=== PATIENT | female | born 1995 | race Caucasian/White ===

== ENCOUNTER 2022-03-08 20:44 | Emergency (ER) | payer OTHER, SELFPAY ==
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
[2022-03-08 20:57] VITALS: BP 138/89; PULSE 90; RESP 16; TEMP 36.6; O2SAT 98
--- NOTE | 2022-03-08 20:58 | ECG_ITS ---
Measurements Intervals [place] Rate: 77 P: 66 AL: 163 QRS: 75 QRSD: 79 T: 64 QT: 401 QTc: 456 Interpretive Statements SINUS RHYTHM NO PREVIOUS ECG AVAILABLE FOR COMPARISON Electronically Signed On 03-09-2022 15:25:08 DESIGNER WRITER by Elke Escobar M.D.
[2022-03-08 21:11] LABS: Basophils Percent Auto 0.4 % (0.2-1.2); Eosinophils Absolute Auto 0.3 K/mm3 (0-0.3); Eosinophils Percent Auto 2.9 % (0-4.4); Hematocrit 42.8 % (37.0-47.0); Immature Granulocyte Absolute 0.02 K/mm3 (0.00-0.031); Immature Granulocyte Percent A 0.2 % (0-0.5); Lymphocytes Absolute Auto 2.63 K/mm3 (0.9-3.2); Lymphocytes Percent Auto 27.4 % (18.3-44.2); Mean Corpuscular HGB Conc 32.7 g/dl (32-36); Mean Corpuscular Hemoglobin 29.6 pg (26-34); Mean Corpuscular Volume 90.5 fl (80-100); Mean Platelet Volume 9.3 fl (7.4-10.4); Monocytes Absolute Auto 0.6 K/mm3 (0.1-0.6); Monocytes Percent Auto 6.7 % (2.6-8.5); Neutrophils Percent Auto 62.4 % (45.5-73.1); Platelet Count Result 305 k/mm3 (150-375); Red Blood Count 4.73 M/mm3 (4.2-5.4); Red Cell Distribution Width 15.1 % (11.5-14.5); White Blood Count 9.6 K/mm3 (4.5-10.0)
[2022-03-08 21:21] LABS: Alanine Aminotransferase 107 U/L (6-35); Albumin Level 4.5 g/dL (3.5-5.1); Alkaline Phosphatase 97 U/L (38-126); Anion Gap 8 mmol/L (8-16); Aspartate Amino Transferase 75 U/L (14-36); Bilirubin,Total 0.4 mg/dL (0.2-1.3); Blood Urea Nitrogen 19 mg/dL (7-17); Calcium 8.7 mg/dL (8.4-10.2); Carbon Dioxide 22 mmol/L (22-30); Chloride 106 mmol/L (98-107); Estimated CRCL calculation 11 ml/min; Estimated Glomerular Filt Rate > 60; Glucose 100 mg/dL (65-110); Potassium 3.9 mmol/L (3.4-5.0); Sodium 136 mmol/L (137-145)
[2022-03-08 21:34] VITALS: BP 145/94; PULSE 89; RESP 19; O2SAT 98
[2022-03-08 22:16] VITALS: BP 126/81; PULSE 80; RESP 16; O2SAT 98
[2022-03-08 22:16] LABS: Lipase 38 U/L (23-300)
[2022-03-08 22:35] LABS: Beta HCG Quantitative < 2.39 mIU/ML
[2022-03-08 22:40] LABS: Appearance Urine Clear (Clear); Bilirubin Urine Negative (Negative); Blood Urine Negative (Negative); Color Urine Yellow (Yellow); Glucose Urine UA Negative (Negative); Ketones Urine Negative (Negative); Leukocyte Esterase Ur Negative LEU/UL (Negative); Nitrate Urine Negative (Negative); Protein Urine Negative (Negative); Specific Grav Ur 1.025 (1.001-1.035); Urobilinogen Urine 0.2 mg/dL (<2.0); pH Urine 6.5 (5.0-9.0)
[2022-03-08 22:42] LABS: Mucus Urine Rare /lpf; Squamous Epithelial Cell Urine Few /hpf (Few); WBC Urine 0-3 /hpf
[2022-03-08] MEDS: SODIUM CHLORIDE 0.9% IV 1,000 ML 999 ML IV CONT (22:43)
[2022-03-08 22:56] LABS: Add Urine Microscopic? NO
[2022-03-08 23:32] VITALS: BP 131/81; PULSE 85; RESP 13; O2SAT 100
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
== END 2022-03-09 00:45 | disposition home or self-care (01) ==
PROVIDERS: Emergency Provider Emergency Medicine
DX: R10.84 Generalized abdominal pain (principal); R16.0 Hepatomegaly, not elsewhere classified; K20.90 Esophagitis, unspecified without bleeding; K29.70 Gastritis, unspecified, without bleeding
CPT/HCPCS: 36415; 74177; 80053; 81003; 83690; 84702; 85025; 93005; 96360; 96361; 99284; J7030; Q9967

== ENCOUNTER 2022-04-04 09:26 | Emergency (ER) | payer OTHER, SELFPAY ==
[2022-04-04 09:40] VITALS: BP 101/64; PULSE 97; RESP 16; TEMP 36.5; O2SAT 97
--- NOTE | 2022-04-04 10:11 | ED_ITS ---
HPI - Dental/Oral General Chief complaint: Dental/Oral Stated complaint: R BOTTOM TOOTH PAIN Time Seen by Provider: 04/04/22 10:11 History of Present Illness HPI Narrative: 26-year-old female presents emergency room for evaluation of chronic dental pain. He was seen at an outside emergency room 2 weeks ago and just completed a course of clindamycin yesterday. States that she has had a dental appointment in 3 weeks. Is been taking Tylenol and ibuprofen with no relief of symptoms. Patient states she is here requesting pain medicines only. Related Data Allergies Allergy/AdvReac Type Severity Reaction Status Date / Time amoxicillin Allergy Unknown Dyspnea / Verified 11/29/18 22:10 SOB Review of Systems Review of Systems: CONSTITUTIONAL: Denies fever, chills, or sweats. EYES: Denies visual changes, redness, or discharge. ENT: Denies rhinorrhea, congestion, sore throat, or otalgia. CARDIOVASCULAR: Denies chest pain, palpitations, or edema. RESPIRATORY: Denies cough or dyspnea. GASTROINTESTINAL: Denies abdominal pain, nausea, vomiting, or diarrhea. GENITOURINARY: Denies dysuria or hematuria. SKIN: Denies rash or itching. MUSCULOSKELETAL: Denies back pain, joint pain, or myalgia. NEUROLOGIC: Denies headache, numbness, dizziness, or weakness. PSYCHIATRIC: Denies anxiety or depression. Exam Narrative: GENERAL: Well-appearing, well-nourished, no physical limitations, and in no acute distress. HEAD: Normocephalic, atraumatic. EYES: Conjunctivae normal, PERRLA and EOMI. ENT: Widespread periodontal disease, widespread caries. Significantly decayed right lower molar, with no surrounding erythema or abscess noted. Tenderness to palpation NECK: Supple. No adenopathy or masses. CHEST: Clear to auscultation. No respiratory distress. No wheezes rales or rhonchi. No tenderness. HEART: Regular rate and rhythm. No murmur heard. Normal peripheral pulses. EXTREMITIES: Normal range of motion. No edema. No clubbing or cyanosis SKIN: Warm, dry, no rash. No noted wounds NEURO: No focal deficits. Alert and oriented x3. MAEW. CN's II-XI intact bilaterally, normal gait PSYCH: Cooperative. Normal mood and affect. Course Vital Signs Vital signs: Vital Signs Temperature 36.5 C 04/04/22 09:40 Pulse Rate 97 04/04/22 09:40 Respiratory Rate 16 04/04/22 09:40 Blood Pressure 101/64 04/04/22 09:40 Pulse Oximetry 97 04/04/22 09:40 Oxygen Delivery Room Air 04/04/22 09:40 Temperature 36.5 C 04/04/22 09:40 Pulse Rate 97 04/04/22 09:40 Respiratory Rate 16 04/04/22 09:40 Blood Pressure 101/64 04/04/22 09:40 Pulse Oximetry 97 04/04/22 09:40 Oxygen Delivery Room Air 04/04/22 09:40 Discharge Plan Discharge Clinical Impression: Dental caries, Toothache Patient Disposition: Home, Self-Care Condition: Stable Instructions: Antibiotic Form, Toothache (ED) Additional Instructions: Keep your dental appointment. May take Tylenol and ibuprofen as needed. Prescriptions: New tramadol 50 mg tablet 50 mg PO Q6H PRN (Reason: pain) Qty: 8 0RF Follow-up/Referrals: PHYSICIAN,TITLE I COORDINATOR [Non-Staff] - Stand Alone Forms: Work/School Release IP Time of Disposition: 10:15
== END 2022-04-04 10:27 | disposition home or self-care (01) ==
PROVIDERS: Emergency Provider Nurse Practitioner Family
DX: K02.9 Dental caries, unspecified (principal)
CPT/HCPCS: 99283

== ENCOUNTER 2022-04-10 08:16 | Emergency (ER) | payer OTHER, SELFPAY ==
[2022-04-10 08:54] VITALS: BP 128/74; PULSE 120; RESP 20; TEMP 36.4; O2SAT 99
--- NOTE | 2022-04-10 09:13 | ED.RECABL ---
HPI - Recheck/Abnormal Lab/Rx General Chief Complaint: Recheck/Abnormal Lab/Rx Stated Complaint: want checked for hepatitis C Time Seen by Provider: 04/10/22 08:52 History of Present Illness HPI narrative: Patient is a 26-year-old female here for evaluation after being told she tested positive for hepatitis C. Patient received a letter in the mail 5 days ago from a company which she donated blood with notifying her that she tested positive. Patient denies any symptoms, specifically denies abdominal pain, jaundice, nausea or vomiting. She is a drug user. She would like to be retested today and referred to somebody who can start treatment if she is positive. Related Data Allergies Allergy/AdvReac Type Severity Reaction Status Date / Time amoxicillin Allergy Unknown Dyspnea / Verified 11/29/18 22:10 SOB Review of Systems Review of Systems: Gen.: Denies fevers or chills Eyes: Denies eye pain or visual change ENT: Denies congestion Respiratory: Denies shortness of breath or cough CV: Denies chest pain or palpitations GI: Denies abdominal pain nausea, emesis or diarrhea denies burning, urgency, frequency or hematuria Musculoskeletal: Denies back pain or muscle pain Neuro: Denies numbness, tingling, weakness or focal weakness Skin: Denies rash Except as documented, all other systems reviewed and negative Exam Narrative: Gen: Alert, oriented, no acute distress. Eyes: EOMI, no icterus Pulm: Respirations even and unlabored, symmetric thorax expansion, no audible stridor or visible cyanosis CV: Regular rate per telemetry GI: No distension, no voluntary/involuntary guarding Neuro: AOx4, moves all extremities without apparent difficulty or weakness, follows commands Skin: No jaundice, no visible bruising, rashes, lesions or wounds on exposed skin Psych: Normal mood/affect, insight/judgement good, adequate fund of knowledge, recent/remote memory intact Course Vital Signs Vital signs: Vital Signs Temperature 97.6 F 04/10/22 08:54 Pulse Rate 120 H 04/10/22 08:54 Respiratory Rate 20 04/10/22 08:54 Blood Pressure 128/74 04/10/22 08:54 Pulse Oximetry 99 04/10/22 08:54 Oxygen Delivery Room Air 04/10/22 08:54 Temperature 97.6 F 04/10/22 08:54 Pulse Rate 120 H 04/10/22 08:54 Respiratory Rate 20 04/10/22 08:54 Blood Pressure 128/74 04/10/22 08:54 Pulse Oximetry 99 04/10/22 08:54 Oxygen Delivery Room Air 04/10/22 08:54 MDM - Recheck/Abnormal Lab/Rx MDM Narrative Medical decision making narrative: 26-year-old female here for evaluation after being told she has hepatitis C. She is nontoxic-appearing; heart rate is 120, likely due to anxiety, not complaining of chest pain or palpitations. Her hepatitis C antibody is positive today. Liver enzymes slightly elevated at 39 and 46; appears chronic. She will be referred to GI for further evaluation and management. Lab Data 04/10/22 09:36 04/10/22 09:36 Labs: Lab Results 04/10/22 04/10/22 04/10/22 Range/Units 09:36 09:36 09:36 WBC 8.2 (4.5-10.0) K/mm3 RBC 4.63 (4.2-5.4) M/mm3 Hgb 13.5 (12.0-15.0) g/dL Hct 41.8 (37.0-47.0) % MCV 90.3 (80-100) fl MCH 29.2 (26-34) pg MCHC 32.3 (32-36) g/dl RDW 14.3 (11.5-14.5) % Plt Count 322 (150-375) k/mm3 MPV 9.3 (7.4-10.4) fl Immature Gran % (Auto) 0.2 (0-0.5) % Neut % (Auto) 65.5 (45.5-73.1) % Lymph % (Auto) 21.3 (18.3-44.2) % [place] % (Auto) 6.0 (2.6-8.5) % Eos % (Auto) 6.5 H (0-4.4) % Baso % (Auto) 0.5 (0.2-1.2) % Lymph # (Auto) 1.75 (0.9-3.2) K/mm3 [place] # (Auto) 0.5 (0.1-0.6) K/mm3 Eos # (Auto) 0.5 H (0-0.3) K/mm3 Baso # (Auto) 0.0 (0.0-0.1) K/mm3 Abs Immat Gran (auto) 0.02 (0.00-0.031) K/mm3 Absolute Neuts (auto) 5.4 (1.3-6.7) K/mm3 Absolute Nucleated RBC 0.0 (0.0-0.012) K/mm3 Nucleated RBC % 0.0 (0.0-0.2) % Sodium 140 (137-145) mmol/L Pot
[2022-04-10 10:03] LABS: Basophils Percent Auto 0.5 % (0.2-1.2); Eosinophils Absolute Auto 0.5 K/mm3 (0-0.3); Eosinophils Percent Auto 6.5 % (0-4.4); Hematocrit 41.8 % (37.0-47.0); Hemoglobin 13.5 g/dL (12.0-15.0); Immature Granulocyte Absolute 0.02 K/mm3 (0.00-0.031); Immature Granulocyte Percent A 0.2 % (0-0.5); Lymphocytes Absolute Auto 1.75 K/mm3 (0.9-3.2); Lymphocytes Percent Auto 21.3 % (18.3-44.2); Mean Corpuscular HGB Conc 32.3 g/dl (32-36); Mean Corpuscular Hemoglobin 29.2 pg (26-34); Mean Corpuscular Volume 90.3 fl (80-100); Mean Platelet Volume 9.3 fl (7.4-10.4); Monocytes Absolute Auto 0.5 K/mm3 (0.1-0.6); Neutrophils Absolute Auto 5.4 K/mm3 (1.3-6.7); Neutrophils Percent Auto 65.5 % (45.5-73.1); Platelet Count Result 322 k/mm3 (150-375); Red Blood Count 4.63 M/mm3 (4.2-5.4); Red Cell Distribution Width 14.3 % (11.5-14.5); White Blood Count 8.2 K/mm3 (4.5-10.0)
[2022-04-10 10:52] LABS: Alanine Aminotransferase 46 U/L (6-35); Albumin Level 4.2 g/dL (3.5-5.1); Alkaline Phosphatase 85 U/L (38-126); Anion Gap 4 mmol/L (8-16); Aspartate Amino Transferase 39 U/L (14-36); Bilirubin,Total 0.3 mg/dL (0.2-1.3); Blood Urea Nitrogen 17 mg/dL (7-17); Calcium 8.8 mg/dL (8.4-10.2); Carbon Dioxide 29 mmol/L (22-30); Chloride 107 mmol/L (98-107); Estimated CRCL calculation 86 ml/min; Estimated Glomerular Filt Rate > 60; Glucose 79 mg/dL (65-110); Potassium 4.3 mmol/L (3.4-5.0); Sodium 140 mmol/L (137-145)
[2022-04-10 11:10] LABS: Hepatitis B Surface Antigen Negative (Negative)
[2022-04-10 11:16] LABS: HAV RESULT Negative (Negative); Hepatitis B Core IgM Result Negative (Negative)
[2022-04-10 11:28] LABS: Hepatitis C Virus Antibody Reactive (Negative)
== END 2022-04-10 11:47 | disposition home or self-care (01) ==
PROVIDERS: Emergency Provider Physician Assistant
DX: R79.89 Other specified abnormal findings of blood chemistry (principal)
CPT/HCPCS: 36415; 80053; 80074; 85025; 87522; 99283

== ENCOUNTER 2022-04-29 11:26 | Outpatient (CLI) | payer OTHER, SELFPAY ==
[2022-04-29 12:11] LABS: INR 0.9
[2022-05-01 15:33] LABS: Hepatitis C Viral RNA PCR 941000 IU/mL
[2022-05-03 20:44] LABS: HCV Genotype, LiPA 1a
== END 2022-04-29 11:27 | disposition home or self-care (01) ==
LOC: ANHLAB 11:27
PROVIDERS: Visit Provider Internal Medicine Gastroenterology
DX: B19.20 Unspecified viral hepatitis C without hepatic coma (principal); R74.8 Abnormal levels of other serum enzymes
CPT/HCPCS: 36415; 81596; 85610; 87522

== ENCOUNTER 2022-05-12 10:14 | Outpatient (CLI) | payer OTHER, SELFPAY ==
[2022-05-19 14:53] LABS: ALT 39 U/L (6-29); Alpha-2-Macroglobulin 245 mg/dL (106-279); Apolipoprotein A1 227 mg/dL (101-198); Fibrosis Score 0.12; Fibrosis Stage F0; GGT 139 U/L (3-40); Haptoglobin 108 mg/dL (43-212); Necroinflammat Act Grade A0; Total Bilirubin 0.5 mg/dL (0.2-1.2)
== END 2022-05-12 10:15 | disposition home or self-care (01) ==
LOC: ANHLAB 10:15
PROVIDERS: Visit Provider Nurse Practitioner
DX: B19.20 Unspecified viral hepatitis C without hepatic coma (principal); R74.8 Abnormal levels of other serum enzymes
CPT/HCPCS: 36415; 81596

== ENCOUNTER 2022-05-19 11:18 | Outpatient (CLI) | payer OTHER, SELFPAY ==
[2022-05-25 23:17] LABS: ALT 47 U/L (6-29); Alpha-2-Macroglobulin 255 mg/dL (106-279); Apolipoprotein A1 261 mg/dL (101-198); Fibrosis Score 0.08; Fibrosis Stage F0; GGT 183 U/L (3-40); Haptoglobin 92 mg/dL (43-212); Necroinflammat Act Grade A0-A1; Total Bilirubin 0.3 mg/dL (0.2-1.2)
== END 2022-05-19 11:19 | disposition home or self-care (01) ==
PROVIDERS: Visit Provider Nurse Practitioner
DX: B19.20 Unspecified viral hepatitis C without hepatic coma (principal); R74.8 Abnormal levels of other serum enzymes
CPT/HCPCS: 36415; 81596

== ENCOUNTER 2022-05-28 05:04 | Emergency (ER) | payer OTHER, SELFPAY ==
[2022-05-28 05:05] VITALS: BP 163/114; PULSE 87; RESP 14; TEMP 36.4; O2SAT 98
--- NOTE | 2022-05-28 05:44 | ED.DENTAL ---
HPI - Dental/Oral General Chief complaint: Dental/Oral Stated complaint: dental pain Time Seen by Provider: 05/28/22 05:39 Source: RN notes reviewed History of Present Illness HPI Narrative: Patient presents emergency department from home for dental pain. Patient states has been having pain in her right lower jaw for several weeks that worsened this evening. States she had a long history of issues with her molar tooth in this region and supposed be seeing a dentist in July she states she had been on antibiotics at the beginning of the year for that tooth as well she states she has not take anything at home for the pain she denies any fevers or chills states that the pain does radiate into her ear but she denies inability to swallow or shortness of breath patient states she is allergic to amoxicillin Related Data Home Medications Medication Instructions Recorded Confirmed hydroxyzine HCl 25 mg tablet 25 mg PO TID PRN 04/29/22 levetiracetam 500 mg tablet 500 mg PO Q12H 04/29/22 (Keppra) naltrexone microspheres 380 mg 380 mg IM MONTHLY 04/29/22 intramuscular suspension,extended release (Vivitrol) quetiapine 300 mg tablet (Seroquel) 300 mg PO QHS 04/29/22 quetiapine 50 mg tablet (Seroquel) 50 mg PO TID 04/29/22 venlafaxine 75 mg tablet 75 mg PO TID 04/29/22 Allergies Allergy/AdvReac Type Severity Reaction Status Date / Time amoxicillin Allergy Unknown Dyspnea / Verified 04/29/22 10:56 SOB Review of Systems Review of Systems: Gen.: Denies fevers or chills HEENT : See HPI Neuro: D headache Skin: Denies rash Endo: Denies DM PMFSH Past Medical History Medical History Elevated liver enzymes Hepatitis C Methadone use Social History Social History Smoking packs per day: 1 Smoking cigarettes per day: 20.0 Smoking status: Former smoker Alcohol intake: never Substance use: former Exam Narrative: APPEARANCE: No acute distress, nontoxic, resting in bed HEENT: Normocephalic, atraumatic, TMs clear bilaterally, nares patent, oral mucosa moist, airway patent, tooth #32 is carious down to the gum and tender to palpation there is mild erythema of the gum with no fluctuance RESPIRATORY: No respiratory distress MUSCULOSKELETAl: Moves all extremities. NEURO: Awake and alert. Following commands, speech normal, no focal deficits SKIN:: Warm, dry. Normal Color PSYCHIATRIC: Normal affect/mood Course Course Emergency Course: Discussed with patient results of workup and diagnosis. Discussed need for follow-up with primary care, proper use of medication, and reasons to return to the emergency department. Patient understands and agrees to current treatment plan Vital Signs Vital signs: Vital Signs Temperature 97.6 F 05/28/22 05:05 Pulse Rate 87 05/28/22 05:05 Respiratory Rate 14 05/28/22 05:05 Blood Pressure 163/114 H 05/28/22 05:05 Pulse Oximetry 98 05/28/22 05:05 Temperature 97.6 F 05/28/22 05:05 Pulse Rate 87 05/28/22 05:05 Respiratory Rate 14 05/28/22 05:05 Blood Pressure 163/114 H 05/28/22 05:05 Pulse Oximetry 98 05/28/22 05:05 MDM - Dental/Oral MDM Narrative Medical decision making narrative: Patient presents for dental pain tooth #32 is carious down to the gumline tender there is mild erythema there is no fluctuance patient is allergic to amoxicillin so will place on clindamycin we will give pain medicine refer to dental clinic for further evaluation Differential Diagnosis Differential diagnosis: Likely toothache, dental abscess, fracture of tooth and aphthous ulcer Discharge Plan Discharge Clinical Impression: Dental abscess, Dental caries Patient Disposition: Home, Self-Care Condition: Stable Instructions: Antibiotic Form, Dental Abscess (ED) Additional Instructions: Return for increasing pain fever or any other symptoms of
[2022-05-28] MEDS: CLINDAMYCIN HCL 150 MG CAP 450 MG PO (06:00)
[2022-05-28] MEDS: HYDROcodone/acetaminophen (*CRX) 5-325 MG TABLET 1 TAB PO (06:00)
[2022-05-28 06:14] VITALS: BP 118/79; PULSE 84; RESP 18; TEMP 36.6; O2SAT 99
== END 2022-05-28 06:14 | disposition home or self-care (01) ==
PROVIDERS: Emergency Provider Emergency Medicine; PCP Emergency Medicine
DX: K04.7 Periapical abscess without sinus (principal); K02.9 Dental caries, unspecified; B19.20 Unspecified viral hepatitis C without hepatic coma; Z87.891 Personal history of nicotine dependence
CPT/HCPCS: 99283; A9270

== ENCOUNTER 2023-03-16 08:19 | Emergency (ER) | payer OTHER, SELFPAY ==
[2023-03-16 08:20] VITALS: BP 139/69; PULSE 80; RESP 16; TEMP 36.4; O2SAT 100
--- NOTE | 2023-03-16 09:16 | ED.FEMALEGU ---
HPI - Female Genitourinary General Chief complaint: Recheck/Abnormal Lab/Rx Stated complaint: GENITAL LESIONS Time Seen by Provider: 03/16/23 09:06 Source: patient Mode of arrival: ambulatory Limitations: no limitations History of Present Illness HPI Narrative: This is a 27-year-old female that presents to the emergency department for genital lesions. Reports she was seen at [facility] a week ago and diagnosed with herpes. She took a week of Valtrex and is still having symptoms. She would like another prescription. She also would like to be restarted on her hepatitis medication. Reports some dysuria. Denies hematuria. Related Data Home Medications Medication Instructions Recorded Confirmed hydroxyzine HCl 25 mg tablet 25 mg PO TID PRN 04/29/22 levetiracetam 500 mg tablet 500 mg PO Q12H 04/29/22 (Keppra) naltrexone microspheres 380 mg 380 mg IM MONTHLY 04/29/22 intramuscular suspension,extended release (Vivitrol) quetiapine 300 mg tablet (Seroquel) 300 mg PO QHS 04/29/22 quetiapine 50 mg tablet (Seroquel) 50 mg PO TID 04/29/22 venlafaxine 75 mg tablet 75 mg PO TID 04/29/22 Allergies Allergy/AdvReac Type Severity Reaction Status Date / Time amoxicillin Allergy Unknown Dyspnea / Verified 04/29/22 10:56 SOB Review of Systems Review of Systems: CONSTITUTIONAL: Denies fever GENITOURINARY: Reports dysuria. Denies hematuria. SKIN: Reports rash All systems reviewed & are unremarkable except as noted in HPI and below PMFSH Past Medical History Medical History Elevated liver enzymes Hepatitis C Methadone use Social History Social History Smoking packs per day: 1 Smoking cigarettes per day: 20.0 Smoking status: Former smoker Alcohol intake: never Substance use: former Exam Narrative: GENERAL: Well-appearing, well-nourished, and in no acute distress. HEAD: Normocephalic, atraumatic. EYES: EOMI. CHEST: No respiratory distress. HEART: Regular rate EXTREMITIES: Normal range of motion. No edema. SKIN: Warm, dry, no rash. NEURO: No focal deficits. Alert and oriented x3. PSYCH: Normal mood and affect FEMALE GENITAL: Multiple ulcerating lesions and papillated papules to the labia bilaterally. Normal appearing cervix, no abnormal drainage noted Course Vital Signs Vital signs: Vital Signs Temperature 97.6 F 03/16/23 08:20 Pulse Rate 80 03/16/23 08:20 Respiratory Rate 16 03/16/23 08:20 Blood Pressure 139/69 03/16/23 08:20 Pulse Oximetry 100 03/16/23 08:20 Oxygen Delivery Room Air 03/16/23 08:20 Temperature 97.6 F 03/16/23 08:20 Pulse Rate 80 03/16/23 08:20 Respiratory Rate 16 03/16/23 08:20 Blood Pressure 139/69 03/16/23 08:20 Pulse Oximetry 100 03/16/23 08:20 Oxygen Delivery Room Air 03/16/23 08:20 MDM - Female Genitourinary MDM Narrative Medical decision making narrative: Patient presented to the emergency department for evaluation of genital lesions. She was seen for this at [facility] and started on Valtrex. Wanted a refill of her prescription. Urine, chlamydia, gonorrhea, Trichomonas and general general culture were sent. She was also wanting treated for hepatitis-C. I told her she needed to follow-up with her GI doctor for this. Patient eloped after being seen and before finishing her workup and treatment Differential Diagnosis Differential diagnosis: Likely urinary tract infection, bacterial vaginosis, trichomoniasis, cervicitis, vaginitis and other ( chlamydia, gonorrhea, syphilis, herpes) Lab Data Labs: Lab Results 03/16/23 Range/Units 09:59 RPR Pending C. trachomatis (PCR) Pending HIV 1&2 Ab/P24 Ag 4thGn Pending N. gonorrhoeae (PCR) Pending T. vaginalis (PCR) Pending Critical Care Time Critical Care Time Critical Care Time: No Discharge Plan Discharge Clinical Impr
[2023-03-16] MEDS: IBUPROFEN 600 MG TABLET PO (10:22)
--- NOTE | 2023-03-16 10:38 | PC.NURSE ---
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
[2023-03-16 11:03] LABS: HIV 1/2 Ab P24 Ag Result Negative (Negative)
[2023-03-16 11:19] LABS: Trichomonas Vag PCR NOT DETECTED (NOT DETECTE)
[2023-03-16 11:43] LABS: Chlamydia trachomatis NOT DETECTED (NOT DETECTE); Neisseria gonorrhoeae PCR NOT DETECTED (NOT DETECTE)
[2023-03-16 14:40] LABS: Rapid Plasma Reagin Reactive (NonReactive)
[2023-03-18 17:03] LABS: Treponema pallidum Ab FTA ABS Reactive (Nonreactive)
== END 2023-03-16 10:42 | disposition left against medical advice (07) ==
LOC: ANHED 09:25
PROVIDERS: Emergency Provider Physician Assistant; PCP Internal Medicine
DX: N89.8 Other specified noninflammatory disorders of vagina (principal); B19.20 Unspecified viral hepatitis C without hepatic coma; Z87.891 Personal history of nicotine dependence
CPT/HCPCS: 36415; 86592; 86703; 86780; 87070; 87491; 87591; 87661; 99284; A9270; G0432